=== PATIENT | female | born 1995 | race Caucasian/White ===

== ENCOUNTER 2024-01-22 17:07 | Emergency (ER) | payer OTHER, SELFPAY ==
--- NOTE | ~2024-01-22 | XR_ITS ---
EXAMINATION: XR KNEE, RIGHT CLINICAL INFORMATION: Trauma. COMPARISON: None available. TECHNIQUE: Two views of the right knee. FINDINGS: No fracture or joint effusion. Alignment is anatomic. Joint spaces are maintained. No abnormal soft tissue calcification. XR/XR knee RT 2V IMPRESSION: Normal right knee.
[2024-01-22 17:48] VITALS: BP 123/78; PULSE 84; RESP 16; TEMP 36.3; O2SAT 98; BMI 39.1
--- NOTE | 2024-01-22 17:48 | ED.EXTPRO ---
HPI - Extremity Problem General Chief complaint: Extremity Injury, Lower Stated complaint: right knee inj Time Seen by Provider: 01/22/24 18:58 Source: patient Mode of arrival: ambulatory Limitations: no limitations History of Present Illness HPI Narrative: 28-year-old female with no significant past medical history presents emergency department with complaints of right knee pain starting this morning. She reports that she fell down one tall step landing on her right knee and foot. Reports decrease in ROM and pain with ambulation and is using a crutch to offset the weight. She denies any paresthesias, significant swelling, or ecchymosis Pertinent positives and negatives discussed in HPI Related Data Allergies Allergy/AdvReac Type Severity Reaction Status Date / Time No Known Allergies Allergy Verified 01/22/24 17:50 Review of Systems Review of Systems: Yes all other systems are reviewed and are negative [facility] Social History Social History Advance Directives: No Advance Directives Information Provided: No Physical Exam Vital Signs: Vital Signs: Last Vital Signs Temp 97.4 F 01/22/24 19:16 Pulse 84 01/22/24 19:16 Resp 16 01/22/24 19:16 BP 123/78 01/22/24 19:16 Pulse Ox 98 01/22/24 19:16 O2 Del Method Room Air 01/22/24 19:16 BMI result Body Mass Index 39.1 Nursing notes and vital signs reviewed. GENERAL APPEARANCE: A&0 x 4, generally well appearing, no acute distress HENMT: Normal to inspection, atraumatic, face symmetrical. Normal external ears, nose, and oropharynx clear. EYE: PERRLA, EOM intact, structures appear normal NECK: Supple without lymphadenopathy. No stiffness or restricted ROM. CHEST: Normal to inspection HEART: Normal rate and regular rhythm, normal S1/S2, no M/R/G LUNGS: LS CTA, moving air well. Able to speak in complete sentences. No crackles, wheezes, or rhonchi auscultated ABDOMEN: Soft, nontender, nondistended. Normal bowel sounds noted BACK: No CVAT, no obvious deformity EXTREMITIES: No cyanosis, clubbing, or edema. Normal capillary refill. Decreased ROM right knee secondary to pain NEUROLOGICAL: Alert and oriented, moving all 4 extremities with equal strength. CN not formally tested but appearing grossly intact. Observed to ambulate with normal gait. Cognition normal SKIN: Warm and dry without any lesions, rash, or visible sores PSYCH: Cooperative, normal affect, normal thought process Medications Administered Discontinued Medications Generic Name Dose Route Start Last Admin Trade Name Vincent PRN Reason Stop Dose Admin Acetaminophen 650 mg 01/22/24 17:49 01/22/24 17:53 Acetaminophen 325 Mg Tablet PO 01/22/24 17:50 650 mg ONCE ONE Administration Ibuprofen 600 mg 01/22/24 17:49 01/22/24 17:53 Ibuprofen 600 Mg Tablet PO 01/22/24 17:50 600 mg ONCE ONE Administration Medical Decision Making Medical Decision Making MDM Narrative: Old records reviewed for previous imaging, lab studies, ECGs, and notes. Patient was assessed the emergency department with no acute distress or toxicity noted. X-ray right knee completed showing no evidence of acute fractures or dislocations, per my interpretation, and patient has symptoms consistent with acute contusion. Mandeep wrap applied. Patient educated rest, ice, compress, and elevate for comfort in addition to using OTC medications. Patient educated she can continue use of crutches with weight-bearing as tolerated. Patient is safe for discharge at this time with plan for [id number] Tylenol and/or NSAID such as ibuprofen or naproxen for fever/discomfort with dosing as per packaging. HPI, PE, diagnostics, and plan discussed with patient and family with no unanswered questions at this time. Strict return precautions given to return to the emergency department with new, worsening, or concerning emergent symptoms. Recommended to follow-up with there primary care provider in 24-48 hours for further treatment and management. Differential Diagnosis Differential Diagnoses: The differential diagnosis associated with the presentation includes But not limited to fracture, dislocation, strain, sprain, contusion Independent Interpretation I performed an independent interpretation of an: Plain X-Ray Discharge Plan Discharge Clinical Impression: Contusion of knee, right Patient Disposition: Home, Self-Care Instructions: Contusion in Adults (ED), Knee Pain (ED), R.I.C.E. Treatment (ED) Additional Instructions: Your seen in the emergency department for concerns of right knee pain after a fall. Your x-rays showed no evidence of dislocated or fractured bones. An Mandeep wrap was applied. It is recommended that you rest, ice, compress, and elevate your knee for comfort. You may use crutches to offset the pain. You are weight-bearing as tolerated. You are safe for discharge at this time with plan for management of fever or discomfort with [id number] Tylenol and/or NSAID such as ibuprofen or naproxen with dosing as per packaging. Please return to the emergency department with new, worsening, or concerning emergent symptoms. Recommended to follow-up with your primary care provider in 24-48 hours for further treatment and management. Thank you for choosing [facility]. Referrals: [facility] [[place] Group] [facility] [[facility] Group] [facility] [Provider Group] Stand Alone Forms: Work/School Release Interventions: ED Discharge Assessment Last Done: 01/22/24 19:16 Discharge Date/Time: 01/22/24 19:23 Print Language: Bengali
[2024-01-22] MEDS: Acetaminophen 325 MG TABLET 650 MG PO (17:53)
[2024-01-22] MEDS: Ibuprofen 600 MG TABLET PO (17:53)
[2024-01-22 19:16] VITALS: BP 123/78; PULSE 84; RESP 16; TEMP 36.3; O2SAT 98
== END 2024-01-22 19:23 | disposition home or self-care (01) ==
PROVIDERS: Emergency Provider Student in an Organized Health Care Education/Training Program
DX: S80.01XA Contusion of right knee, initial encounter (principal); W10.9XXA Fall (on) (from) unspecified stairs and steps, initial encounter; Y93.9 Activity, unspecified; Y92.9 Unspecified place or not applicable; Y99.8 Other external cause status
CPT/HCPCS: 73560; 99283

== ENCOUNTER 2025-04-24 10:33 | Emergency (ER) | payer OTHER, SELFPAY ==
--- NOTE | 2025-04-24 10:55 | ED.GENADULT ---
HPI - General Adult General Chief complaint: Skin/Abscess/Foreign Body Stated complaint: lump on jaw need draining Time Seen by Provider: 04/24/25 11:06 Source: patient and RN notes reviewed Mode of arrival: ambulatory Limitations: no limitations History of Present Illness ED Provider: Keerthi Carlson PA-C HPI narrative: This is a 29-year-old female, with no known medical problems, who presents emergency department with concerns of lump on right side of her jaw. Reports over the last several days she had a cold over the last week - reports cough, congestion which has improved. Reports went to and had negative viral swabs, reports symptoms have improved. She denies any fevers or chills. She has been applying cold and warm compresses to the area without any relief. She was started on doxycycline yesterday for this, only has had 2 doses, feels as though her symptoms are not improving. No other complaints or concerns at this time. MD complaint: Right jaw lump Onset (ago): day(s) Radiation: non-radiation Severity: moderate Quality: aching Pain Consistency: constant Relieving factors: none Exacerbating factors: none Associated symptoms: denies other symptoms Treatments prior to arrival: none Related Data Previous Rx's ?Medication ?Instructions ?Recorded cephalexin 500 mg capsule 500 mg PO Q6H 7 days #28 caps 04/24/25 Allergies Allergy/AdvReac Type Severity Reaction Status Date / Time No Known Allergies Allergy Verified 04/24/25 10:57 Review of Systems Review of Systems: Constitutional : No Fever, No Chills ENT/Mouth : No sore throat, No Rhinorrhea Eyes: No Eye Pain, No Swelling, No Redness Cardiovascular : No Chest Pain, No SOB Respiratory : No Cough, No Sputum Gastrointestinal : No Nausea, No Vomiting, No Diarrhea, No abdominal Pain Genitourinary : No Dysuria, No Hematuria Musculoskeletal : No joint pain, No Myalgias, No Joint Swelling Skin : No Skin Lesions Neuro : No Weakness, No Numbness, No Headache All other systems reviewed and are negative Yes all other systems are reviewed and are negative Constitutional: Constitutional: Reports as per [facility] Social History Social History Advance Directives: No Advance Directives Information Provided: No Physical Exam ED Exam Exam: General: Awake, alert, and oriented X3. No acute distress. HEENT: Normal inspection CVS: Normal heart rate and rhythm. Pulses normal. Respiratory: No respiratory distress Skin: Right jaw with 2 cm indurated region, tender, no surrounding erythema or warmth. Extremities: Normal to inspection Neuro: Oriented X 3. No motor deficit. No sensory deficit. Vital Signs: Vital Signs - 24 hr 04/24/25 10:56 04/24/25 11:25 Temperature 97 F 97 F Pulse Rate 78 78 Respiratory Rate 18 18 Blood Pressure 122/84 122/84 Pulse Oximetry 98 98 Oxygen Delivery Method Room Air Room Air BMI result Body Mass Index 39.1 Medical Decision Making Medical Decision Making MDM Narrative: This is a 29-year-old female who presents emergency department with concerns of painful to the right jaw area. On arrival, vital signs within normal limits. She is speaking full sentences under no acute distress. Patient has indurated cystic acne noted, no fluctuance, at this time area is not ready to be incised and drained. She was already on doxycycline, started on Keflex today. Stressed the importance of warm compresses. She understands and agrees with plan. Also given referral to Dermatology as they may also be able to manage this. She understands and agrees with plan. Patient stable for discharge. Differential Diagnosis Differential Diagnoses: The differential diagnosis associated with the presentation includes Cellulitis, cyst, abscess, folliculitis Discharge Plan Discharge Clinical Impression: Cellulitis Patient Disposition: Home, Self-Care Instructions: Cellulitis (ED), Warm Compress or Soak (ED) Additional Instructions: You were seen in the ER due to a lump on your chin. This is the start of a skin infection, please continue taking doxycycline as prescribed. Finish the entire course. Keflex is another antibiotic, take 4 times a day. Warm compresses to the area at least 6 times per day. This area is not ready to be drained however if it does soften, or get larger please return for re-evaluation. You may follow-up with the hospital monitor. Call to make an appointment. If any new or worsening symptoms occur including but not limited to worsening swelling, high fevers, worsening pain, please seek emergent care. You may also take ibuprofen and or Tylenol as needed for inflammation or pain. [facility] [address] [place] [address] [address], [place] [address] Prescriptions: New cephalexin 500 mg capsule 500 mg PO Q6H 7 Days Qty: 28 0RF Stand Alone Forms: Work/School Release Interventions: ED Discharge Assessment Last Done: 04/24/25 11:25 Discharge Date/Time: 04/24/25 11:26 Print Language: Australian
[2025-04-24 10:56] VITALS: BP 122/84; PULSE 78; RESP 18; TEMP 36.1; O2SAT 98; BMI 39.1
[2025-04-24 11:25] VITALS: BP 122/84; PULSE 78; RESP 18; TEMP 36.1; O2SAT 98
--- OUTSIDE RECORDS SUMMARY | 2025-04-24 13:28 | XMS_ITS | Clinical Summary ---
Author Organization [facility] Address [address] [place] [phone] Phone Care Team Providers Care Forepart Rounder Name Role Phone Unavailable Primary Care Provider Unavailabl e Immunizations Immunization Administration Dates Next Due DTaP 12/03/2001, 8,05/05/1997,03/11,01/09/1997 HPV, Quadrivalent 04/07/2010,03/18/2009,01/17/20 09 Hep B, ped/adol 08/12/1997,01/09/1997,1996 Hib (PRP-T) 03/13/1998, 7,03/11/1997,01/09 IPV 12/03/2001, 8,03/11/1997,01/09 Influenza, injectable, quadrivalent 07/06/2012,1 08/20/2010,04/07/2010 Influenza, injectable, quadr ivalent, preservative free 08/01/2014,04/25/2013 MMR 06/22/2001,11/14/1997 Meningococcal Conj (Menactra) MCV4P 07/19/2013,0 01/16/2009 Tdap 01/16/2009 Unknown Vaccine 09/04/2012 Varicella 01/16/2009,11/14/1997 Family History Relation Name Status Comments Father Alive Healthy Maternal Grandfather cancer diagnosed with MALIGNANT NEOPLASM NOS Maternal Grandmother Alive Mother Alive DM, asthma- sta tus asthmaticus 05/16 resulting in coma x 1 month diagnosed with Asthma, unspecified, DMII WO CMP NT ST UNCNTR Other Alive Siblings: Healt hy Paternal Grandfather Paternal Grandmother [place] age 80 diagnosed with HEART DISEASE NOS Social History Tobacco Use Types Packs/Day Years Used Date Smoking Tobacco: Never Assessed Comments Unknown Sex and Gender Information Value Date Recorded Sex Assigned at Not on file Legal Sex Female 6:10 PM EDT Gender Identity Not on file Sexual Orientation Not on file Last Filed Vital Signs Vital Sign Reading Time Taken Comments Blood Pressure 114/72 04/30/2015 12:00 AM EDT Pulse - - Temperature 37 C (98.6 F) 04/30/2015 12:00 AM EDT Respiratory Rate - - Oxygen Saturation - - Inhaled Oxygen Concentration - - Weight 81.6 kg (179 lb 12.8 oz) 015 12:00 AM EDT Height 152.4 cm (5') 04/30/2015 12:00 AM EDT Body Mass Index 35.11 04/30/2015 12:00 AM EDT Plan of Treatment Health Maintenance Due Date Last Done Comments DTaP,Tdap,and Td Vaccines (7 - Td or Tdap) 01/16/2019 01/16/2009, 12/03/2001, 03/13/1998, Additional history exists Influenza Vaccines (#1) 2025 08/01/20 14, 04/25/2013, 07/06/2012, Additional history exists COVID-19 Vaccine ( season) 2025 Hepatitis B Vaccines Completed 08/12/1997, 01/09/1997, 1996 HIB Vaccines Completed 03/13/1998, 04/08, 03/11/1997, Additional history exists MMR Vaccines Completed 06/22/2001, 11/14/1997 IPV Vaccines Completed 12/03/2001, 11/05, 03/11/1997, Additional history exists Varicella Vaccines Completed 01/16/2009, 11/14/1997 HPV Vaccines Completed 04/07/2010, 03/07, 01/16/2009 Meningococcal Vaccine Completed 07/19/2013, 009 Hepatitis A Vaccines Aged Out No long er eligible based on patient's age to complete this topic Men B Vaccine Aged Out No longer elig ible based on patient's age to complete this topic Pneumococcal Vaccine Aged Out No long er eligible based on patient's age to complete this topic Procedures * Due to [place] state law, this organization might not be sharing sensitive test results. Procedure Name Priority Date/Time Associated Diagnosis Comments CHLAMYDIA AND GONORRHEA, AMPLIFIED Routine 12/04/2014 12:00 AM EDT from Last 3 Months or Most Recently Relevant to Health Maintenance Results * Due to [place] state law, this organization might not be sharing sensitive test results. * Chlamydia and Gonorrhoea, Amplified (12/04/2014 12:00 AM EDT) URINE GC AMP PROBE NEGATIVE C ONVERTED LABS Comment: No Neisseria Gonorrhoeae RNA detected in this patient's sample (REFERENCE RANGE/NORMAL VALUE: NOT DETECTED) NOTE: This test uses screen stretcher-mediated amplification method to detect rRNA from C.Trachomatis and N.Gonorrhoeae. A negative result does not preclude infection. In the case of a negative urine result, testing of an endocervical(female) or urethral(male) specimen is recommended if there is high clinical suspicion of infection. The performance characteristics of this test have not been evaluated in children. The Aptima Combo2 assay is not intended for the evaluation of suspected sexual abuse or for other medico-legal indications. The ordering provider should assess if the patient had consensual sex without risk of sexual abuse. Consult the [facility] if needed. Contact phone number . Therapeutic failure or success cannot be determined with the Aptima Combo2 assay since nucleic acid may persist following appropriate antimicrobial therapy. The Centers for Disease Control and Prevention (CDC) recommends confirmatory retesting using culture or a different nucleic acid amplification test when positive results occur, if indicated. URINE CHLAMYDIA AMP PROBE NEGATIVE CONVERTED LABS Comment: No Chlamydia Trachomatis RNA detected in this patient's sample (REFERENCE RANGE/NORMAL VALUE: NOT DETECTED) 12/04/2014 Narrative CONVERTED LABS - 12/04/2014 12:00 AM EDT Screening Negative Katie Oropeza 12/03/2014 03:50:55 PM > sent to Thuy Miranda 12/04/2014 03:38:39 PM > Thuy Conway NP LAB MICROBIOLOGY - GENERAL ORD ERABLES Final Result CONVERTED LABS from Last 3 Months or Most Recently Relevant to Health Maintenance
--- OUTSIDE RECORDS SUMMARY | 2025-04-24 13:28 | XMS_ITS | Encounter Summary ---
Author Organization [facility] Address [address] [place] [phone] Phone Care Team Providers Care Career Resource Specialist Name Role Phone Unavailable Primary Care Provider Unavailabl e Encounter Details Date Type Department Care Team ([facility] st Contact Info) Description 12/24/2017 Conversion Encounter [facility] [address] [address] Social History Tobacco Use Types Packs/Day Years Used Date Smoking Tobacco: Never Assessed Comments Unknown Sex and Gender Information Value Date Recorded Sex Assigned at Not on file Legal Sex Female 6:10 PM EDT Gender Identity Not on file Sexual Orientation Not on file documented as of this encounter Plan of Treatment Not on file documented as of this encounter Visit Diagnoses Not on filedocumented in this encounter
--- OUTSIDE RECORDS SUMMARY | 2025-04-24 13:28 | XMS_ITS | Clinical Summary ---
Author Organization [facility] Address [address] [place] [address] Care Team Providers Care Electrical Project Manager Name Role Phone Unavailable Primary Care Provider Unavailabl e Social History Tobacco Use Types Packs/Day Years Used Date Smoking Tobacco: Never Assessed Comments Unknown Sex and Gender Information Value Date Recorded Sex Assigned at Not on file Legal Sex Female 11:35 PM EST Gender Identity Not on file Sexual Orientation Not on file Plan of Treatment Health Maintenance Due Date Last Done Comments DTaP,Tdap,and Td Vaccines (1 - Tdap) 11/02/2015 Hepatitis B Vaccines (1 of 3 - 19+ 3-dose series) 11/02/2015 Cervical Cancer Screening: P ap Smear 2017 Depression Screening 08/07/2024 COVID-19 Vaccine ( - 2023-2 5 season) 2025 Influenza Vaccine (#1) 2025 HIB Vaccines Aged Out No longer eligi ble based on patient's age to complete this topic HPV Vaccines Aged Out No longer eligi ble based on patient's age to complete this topic Hepatitis A Vaccines Aged Out No long er eligible based on patient's age to complete this topic IPV Vaccines Aged Out No longer eligi ble based on patient's age to complete this topic MMR Vaccines Aged Out No longer eligi ble based on patient's age to complete this topic Meningococcal ACWY Vaccine Aged Out N o longer eligible based on patient's age to complete this topic Meningococcal B Vaccine Aged Out No l onger eligible based on patient's age to complete this topic Pneumococcal Vaccine: Pediat rics (0 to 5 Years) and At-Risk Patients (6 to 49 Years) Aged Out No longer eligible b ased on patient's age to complete this topic RSV Immunization Patients Un aramis 20 months Aged Out No longer eligible b ased on patient's age to complete this topic Varicella Vaccines Aged Out No longer eligible based on patient's age to complete this topic
== END 2025-04-24 11:26 | disposition home or self-care (01) ==
PROVIDERS: Emergency Provider Emergency Medicine; PCP Nurse Practitioner Family
DX: L03.211 Cellulitis of face (principal); R05.9 Cough, unspecified
CPT/HCPCS: 99282; 99283

== ENCOUNTER 2025-04-29 15:42 | Emergency (ER) | payer OTHER, SELFPAY ==
[2025-04-29 15:44] VITALS: BP 142/88; PULSE 79; RESP 18; TEMP 36.6; O2SAT 98; BMI 40.0
--- NOTE | 2025-04-29 15:47 | ED_ITS ---
HPI - Skin/Abscess/Foreign Bdy General Chief complaint: Wound/Laceration Stated complaint: Cellulitis Time Seen by Provider: 04/29/25 20:47 Source: patient, RN notes reviewed and old records reviewed Mode of arrival: ambulatory Limitations: no limitations History of Present Illness ED Provider: Anup HPI narrative: 29-year-old female presents for evaluation of an abscess to the right side of her face/jaw. She was seen here a few days ago for cellulitis and had an indurated area which she reports now is soft and squishy. She has been on doxycycline for 1 week and cephalexin for the last 4 days Denies any fevers or chills but has increasing swelling and pain to the area of her abscess in the right jaw Related Data Previous Rx's ?Medication ?Instructions ?Recorded cephalexin 500 mg capsule 500 mg PO Q6H 7 days #28 cap s 04/24/25 Allergies Allergy/AdvReac Type Severity Reaction Status Date / Time No Known Allergies Allergy Verified 04/29/25 15:47 Review of Systems 2 Constitutional: Constitutional: Denies body ache(s), Denies chills, Denies fever(s) and Denies headache(s) ENT: Denies headache(s) Cardiovascular: Cardiovascular: Denies chest pain Integumentary/Breasts: Skin/Breast: Denies erythema and Reports skin swelling Neurologic: Denies headache(s) [facility] Social History Social History Unable to assess alcohol history related to: Unknown Use of substances other than those prescribed or required for medical reasons: Unknown Advance Directives: No Advance Directives Information Provided: Yes Do you have a plan to hurt others: No Plan Physical Exam 2 Vital Signs: Vital Signs: Last Vital Signs Temp 98.2 F 04/29/25 21:43 Pulse 67 04/29/25 21:43 Resp 20 04/29/25 21:43 BP 126/68 04/29/25 21:43 Pulse Ox 98 04/29/25 21:43 O2 Del Method Room Air 04/29/25 21:43 BMI result Body Mass Index 40.0 Skin: Other: There is a 2 x 2 centimeter area of fluctuance with erythema to the right lateral jaw. This area is exquisitely tender to palpation. Course Course Course Narrative: This is a Rapid Medical Examination (RME) performed by Raffy Cullen PA-C in triage. Full HPI, ROS, assessment and treatment plan per primary provider in the Main ED. Hx: 29 yo F here w/ concerns for abscess to right lower jaw. the area began as a pimple, was evaluated at our facility five days ago, the area was indurated and the area was unable to be drained. started on keflex/doxy which she has been taking as prescribed. the area has been enlarging and becoming more painful. Plan: basic labs, I&D Medical Decision Making Medical Decision Making [facility] Narrative: 29-year-old female presents for evaluation of an abscess to the right side of her face. She was seen here a few days ago and apparently had cellulitis without any definitive abscess. Now the area is quite fluctuant and appears amenable to incision and drainage. The patient agrees to incision and drainage. See procedure note. Care was taken to make a small incision to prevent large scarring in the face. We are still able to expel about 5 cc of purulent drainage from the abscess. The patient tolerated procedure well, there were no complications. Differential Diagnosis Differential Diagnoses: The differential diagnosis associated with the presentation includes Abscess Cellulitis Dermatitis Boil Lab Data [facility] Lab Attestation statement: I reviewed the patient's lab results. The patient has a mild leukocytosis which is likely due to her localized infection of the jaw, she has had this for over a week. No significant anemia. Normal platelet count. No electrolyte abnormalities warranting intervention 04/29/25 16:12 04/29/25 16:12 Labs: Lab Results 04/29/25 Range/Units 16:12 WBC 13.1 H (4.8-10.8) X10*3/uL RBC 5.25 (4.20-5.50) X10*6/uL Hgb 13.7 (12.0-16.0) g/dl Hct 40.8 (37.0-47.0) % MCV 77.7 L (80.0-98.0) fL MCH 26.1 L (27.0-33.0) pg MCHC 33.6 (31.0-35.0) g/dl RDW 12.9 (11.0-16.0) % Plt Count 322 (160-400) X10*3/uL MPV 9.7 (9.4-12.3) fL Immature Gran % (Auto) 0.4 (0.0-0.4) % Neut % (Auto) 61.1 (45-73) % Lymph % (Auto) 30.0 (20-40) % [place] % (Auto) 6.9 (2-11) % Eos % (Auto) 1.1 (0-4) % Baso % (Auto) 0.5 (0-2) % Lymph # (Auto) 3.9 (1.2-4.9) X10*3/uL [place] # (Auto) 0.9 (0.1-1.2) X10*3/uL Eos # (Auto) 0.1 (0.0-0.4) X10*3/uL Baso # (Auto) 0.1 (0.0-0.2) X10*3/uL Abs Immat Gran (auto) 0.05 H (0.00-0.03) X10*3/uL Absolute Neuts (auto) 8.0 (2.0-8.3) x10*3/uL Absolute Nucleated RBC 0.000 (0.0-0.012) X10*3/uL Nucleated RBC % (auto) 0.0 (0.0-0.2) /100WBC Sodium 143 (135-145) mmol/L Potassium 3.6 (3.3-5.1) mmol/L Chloride 108 (96-108) mmol/L Carbon Dioxide 28 (22-29) mmol/L Anion Gap 11 L (12-20) BUN 6 L (9-16) mg/dL Creatinine 0.57 (0.5-1.4) mg/dL Estim Creat Clear Calc 149.6 Estimated GFR > 60 Random Glucose 89 (60-115) mg/dL Calcium 8.9 (8.4-10.2) mg/dL Total Bilirubin 0.2 (0.0-1.0) mg/dL AST 23 (5-31) U/L ALT 26 (0-31) U/L Alkaline Phosphatase 83 (39-117) U/L Total Protein 7.4 (6.5-8.0) g/dL Albumin 4.4 (3.5-5.0) g/dL Procedures Abscess I/D Site: face Side (if applicable): right Local Anesthetic: lidocaine 1% and with epi Amount of anesthesia used (mL): 2 Technique: incised with blade (Punch incision) Amount of fluid expressed (mL): 5 Sent for culture/gram staining?: No Irrigation: No Packing used?: none Complications: pain Discharge Plan Discharge Clinical Impression: Abscess Patient Disposition: Home, Self-Care Instructions: Abscess (ED), Incision and Drainage (ED) Additional Instructions: You had an abscess on your face that was drained. You may finish her antibiotics pain Continue warm compresses for at least the next 2 days. Return for new or worsening symptoms Prescriptions: No Action cephalexin 500 mg capsule 500 mg PO Q6H 7 Days Qty: 28 0RF Print Language: Yemeni
[2025-04-29 16:20] LABS: MANUAL DIFF FLAG NO
[2025-04-29 16:21] LABS: Hematocrit 40.8 % (37.0-47.0); Hemoglobin 13.7 g/dl (12.0-16.0); Imm Gran Abs Auto 0.05 X10*3/uL (0.00-0.03); Imm Gran Pct Auto 0.4 % (0.0-0.4); Lymphocytes Absolute Auto 3.9 X10*3/uL (1.2-4.9); Mean Corpuscular HGB Conc 33.6 g/dl (31.0-35.0); Mean Corpuscular Hemoglobin 26.1 pg (27.0-33.0); Mean Corpuscular Volume 77.7 fL (80.0-98.0); NRBC Abs Auto 0.000 X10*3/uL (0.0-0.012); NRBC Pct Auto 0.0 /100WBC (0.0-0.2); Platelet Count 322 X10*3/uL (160-400); Red Blood Count 5.25 X10*6/uL (4.20-5.50); White Blood Count 13.1 X10*3/uL (4.8-10.8)
[2025-04-29 16:38] LABS: Alanine Aminotransferase 26 U/L (0-31); Albumin Level 4.4 g/dL (3.5-5.0); Alkaline Phosphatase 83 U/L (39-117); Anion Gap 11 (12-20); Aspartate Amino Transferase 23 U/L (5-31); Blood Urea Nitrogen 6 mg/dL (9-16); Calcium 8.9 mg/dL (8.4-10.2); Carbon Dioxide 28 mmol/L (22-29); Chloride 108 mmol/L (96-108); Creatinine Clr Calc Pharmacy 149.6; Estimated Glomerular Filt Rate > 60; Potassium 3.6 mmol/L (3.3-5.1); Sodium 143 mmol/L (135-145); Total Protein 7.4 g/dL (6.5-8.0)
--- OUTSIDE RECORDS SUMMARY | 2025-04-29 20:15 | XMS_ITS | Encounter Summary ---
Author Organization [facility] Address [address] [place] [phone] Phone Care Team Providers Care Housekeeping Lead Name Role Phone Unavailable Primary Care Provider Unavailabl e Encounter Details Date Type Department Care Team ([facility] st Contact Info) Description 12/24/2017 Conversion Encounter [facility] [address] [address] Social History Tobacco Use Types Packs/Day Years [...]
--- OUTSIDE RECORDS SUMMARY | 2025-04-29 20:15 | XMS_ITS | Clinical Summary ---
Author Organization [facility]ov[facility] ity Address [address] [place] [address] Care Team Providers Care Plastics Supervisor Name Role Phone Unavailable Primary Care Provider [...]
--- OUTSIDE RECORDS SUMMARY | 2025-04-29 20:15 | XMS_ITS | Clinical Summary ---
Author Organization [facility] Address [address] [place] [phone] Phone Care Team Providers Care Sprinkler Helper Name Role Phone Unavailable Primary Care Provider [...] Siblings: Healt hy Paternal Grandfather Paternal Grandmother [place] age 80 diagnosed with HEART DISEASE NOS [...] complete this topic Procedures * Due to [place] state law, this organization might not be sharing sensitive test results. Procedure Name Priority Date/Time Associated Diagnosis Comments CHLAMYDIA AND GONORRHEA, AMPLIFIED Routine 12/04/2014 12:00 AM EDT from Last 3 Months or Most Recently Relevant to Health Maintenance Results * Due to [place] state law, this organization might not be sharing sensitive test results. * Chlamydia and Gonorrhoea, Amplified (12/04/2014 12:00 AM EDT) URINE GC AMP PROBE NEGATIVE C ONVERTED LABS Comment: No Neisseria Gonorrhoeae RNA detected in this patient's sample (REFERENCE RANGE/NORMAL VALUE: NOT DETECTED) NOTE: This test uses manager air-mediated amplification method to detect rRNA from C.Trachomatis [...] without risk of sexual abuse. Consult the [facility] if needed. Contact phone number . [...]
[2025-04-29 21:42] VITALS: BP 126/68; PULSE 67; RESP 20; TEMP 36.8; O2SAT 98
[2025-04-29 21:43] VITALS: BP 126/68; PULSE 67; RESP 20; TEMP 36.8; O2SAT 98
[2025-04-29] MEDS: Lidocaine HCl 1%/Epi 1:100,000 10 ML VIAL INFILTRATI (23:26)
[2025-04-29 23:31] VITALS: BP 126/68; PULSE 67; RESP 20; TEMP 36.8; O2SAT 98
== END 2025-04-29 23:31 | disposition home or self-care (01) ==
PROVIDERS: Physician Assistant Medical; Emergency Provider Emergency Medicine Emergency Medical Services; PCP Nurse Practitioner Family
DX: L02.01 Cutaneous abscess of face (principal)
CPT/HCPCS: 10060; 36415; 80053; 85025; 99284; J2004